=== PATIENT | male | born 1970 | race Caucasian/White ===

== ENCOUNTER 2021-01-15 06:28 | Day surgery (SDC) | payer BC ==
[2021-01-15] MEDS ORDERED: Lactated Ringers 1,000 ML IV SCH (07:30)
[2021-01-15] MEDS ORDERED: DIPRIVAN 200 MG/20 ML IV ONE (07:54)
--- NOTE | 2021-01-15 08:58 | OP ---
SURGERY DATE/TIME: 01/15/2021 0802 PREOPERATIVE DIAGNOSES: 1) Screening colonoscopy. 2) History of colon polyps. 3) Family history of colon cancer. POSTOPERATIVE DIAGNOSIS: Normal colon. PROCEDURE: Colonoscopy. SURGEON: Colby Malhotra M.D. ANESTHESIA: MAC by Zohaib Tracy CRNA. ESTIMATED BLOOD LOSS: None. SPECIMENS: None. DESCRIPTION OF PROCEDURE: After informed written consent was obtained, the patient was taken to the endoscopy suite. He underwent monitored anesthesia after he was placed in left lateral decubitus position. Digital rectal exam showed mild external hemorrhoids, no internal lesions and normal sphincter tone. The scope was inserted in the rectum and sequentially the entire colonic mucosa was traversed. The level of cecum was reached and verified with direct visualization of ileocecal valve. Upon withdrawal careful mucosal inspection revealed no gross abnormalities. Prior to withdrawal retroflexion was performed and showed no internal lesions. The scope was removed and the patient was transferred to the recovery room in good condition.
[2021-01-15 09:24] VITALS: BP 153/98; PULSE 77; O2SAT 99
== END 2021-01-15 09:12 | disposition home or self-care (01) ==
LOC: SDC 06:28
PROVIDERS: ATTEND Family Medicine
DX: Z12.11 Encounter for screening for malignant neoplasm of colon (principal); Z86.010 Personal history of colon polyps; Z80.0 Family history of malignant neoplasm of digestive organs
CPT/HCPCS: J2704

== ENCOUNTER 2024-12-31 08:33 | Observation (INO) | payer BC ==
--- NOTE | 2024-12-31 09:00 | ERPHSYRPT ---
- History of Present Illness Time Seen by Provider: 12/31/24 08:56 Historian: patient Exam Limitations: no limitations Patient Subjective Stated Complaint: pt here for chest pain off and on for a week now. pain started again 0600 this am. states pain to left side of chest. light headed at times.pt states he is under a lot of stress Triage Nursing Assessment: pt alert, walked in, resp easy, skin w/d/p, chest clear. abd soft, moves all ext well. no cough Physician History: 54-year-old male history of diabetes, hypertension, cardiomegaly, hypercholesterolemia presents to our ED for evaluation of intermittent chest pain radiating to his neck. Symptoms are associated with bouts of near syncope/lightheadedness. The symptoms have been occurring intermittently throughout the week. Patient reports she has been under significant amount of stress due to his work. No associated nausea vomiting or diaphoresis. Symptoms are mild to moderate in intensity. No specific worsening or improving factors. Patient otherwise feels well. He voices no other complaints or concerns at this time. Portions of this note were created with voice recognition technology. There may be grammatical, spelling, punctuation or sound alike errors Timing/Duration: week(s) (1 week) Activities at Onset: none Quality: aching Location: substernal Chest Pain Radiation: neck Severity of Pain-Max: moderate Severity of Pain-Current: mild Modifying Factors: Improves With: nothing Associated Symptoms: denies symptoms Prior Chest Pain/Cardiac Workup: no prior chest pain Nitro Today/Relief: no nitro taken today Aspirin Treatment Today: no aspirin today Allergies/Adverse Reactions: acetaminophen [From Vicodin] Adverse Reaction (Verified 12/31/24 08:38) codeine Adverse Reaction (Verified 12/31/24 08:38) Vomiting hydrocodone bitartrate [From Vicodin] Adverse Reaction (Verified 12/31/24 08:38) Home Medications: Amlodipine Besylate [Norvasc] 5 mg PO DAILY 01/06/21 [History] Ascorbic Acid/Elderberry Fruit [Elderberry-Vit C 50-100 mg Chw] 1 each PO DAILY 01/06/21 [History] Aspirin EC 81 mg [Ecotrin 81 mg] 81 mg PO DAILY 01/06/21 [History] Atorvastatin Calcium [Lipitor] 20 mg PO QHS 01/06/21 [History] Gabapentin [Neurontin] 300 mg PO DAILY PRN PRN 01/06/21 [History] Hydrochlorothiazide 25 mg [hydroDIURIL 25 MG] 25 mg PO DAILY 01/06/21 [History] Olmesartan Medoxomil 20 mg [Benicar 20 MG] 20 mg PO DAILY 01/06/21 [History] Turmeric/Turmeric Root Extract [Turmeric 500 mg Capsule] 1 each PO DAILY 01/06/21 [History] flaxseed oiL [Flaxseed Oil] 1 tab PO DAILY 01/06/21 [History] Hx Influenza Vaccination/Date Given: No Hx Pneumococcal Vaccination/Date Given: No Immunizations Up to Date: Yes Travel Risk - International Travel Have you traveled outside of the country in past 3 weeks: No - Emerging Infectious Disease Are you exhibiting symptoms associated with any current EIDs: No - Review of Systems Constitutional: No Symptoms, No Fever, No Chills Eyes: No Symptoms Ears, Nose, & Throat: No Symptoms Respiratory: No Symptoms, No Cough, No Dyspnea Cardiac: No Symptoms, No Chest Pain, No Edema, No Syncope Abdominal/Gastrointestinal: No Symptoms, No Abdominal Pain, No Nausea, No Vomiting, No Diarrhea Genitourinary Symptoms: No Symptoms, No Dysuria Musculoskeletal: No Symptoms, No Back Pain, No Neck Pain Skin: No Symptoms, No Rash Neurological: No Symptoms, No Dizziness, No Focal Weakness, No Sensory Changes Psychological: No Symptoms Endocrine: No Symptoms Hematologic/Lymphatic: No Symptoms Immunological/Allergic: No Symptoms All Other Systems: Reviewed and Negative - Past Medical History Neurological History: Migraines, Other ENT History: No Pertinent History Cardiac History: High Cholesterol, Hypertension Respiratory History: Asthma Endocrine Medical History: Diabetes Type II Musculoskeletal History: Osteoarthritis GI Medical History: GERD, Hemorrhoids, Hernia, Irritable Bowel, Polyps, Ulcer History: No Pertinent History Psycho-Social History: No Pertinent History Male Reproductive Disorders: No Pertinent History Other Medical History: 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 C5-6, COMPRESSION OF THE NERVE. ARMS GO NUMB AT TIMES. SEVERAL BULDGING AND HERNIATED DISCS IN THE T-SPINE. BONE SPURS IN L-SPINE. 2017 SURGERY AT L4-5. PERMANENT NERVE DAMAGE IN LE. DR. BABCOCK HAS BEEN HIS SURGEON. - Past Surgical History Past Surgical History: Yes Neuro Surgical History: No Pertinent History Cardiac: No Pertinent History Respiratory: No Pertinent History Gastrointestinal: No Pertinent History Genitourinary: No Pertinent History Musculoskeletal: No Pertinent History, Orthopedic Surgery Male Surgical History: No Pertinent History Other Surgical History: sinus surgery, adnoids out. colonoscopies , uvalectomy - Social History Smoking Status: Former smoker Exposure to second hand smoke: No Drug Use: none - Social Determinants of Health Will the patient participate in the screening: Declined to provide - Nursing Vital Signs Nursing Vital Signs: Initial Vital Signs Temperature 97.1 F 12/31/24 08:37 Pulse Rate 68 12/31/24 08:37 Blood Pressure 152/86 12/31/24 08:37 O2 Sat by Pulse Oximetry 99 12/31/24 08:37 Pain Scale Pain Intensity 7 - Physical Exam General Appearance: no apparent distress, alert Eye Exam: PERRL/EOMI, eyes nml inspection Ears, Nose, Throat Exam: normal ENT inspection, moist mucous membranes Neck Exam: normal inspection, full range of motion Respiratory Exam: normal breath sounds, lungs clear, No respiratory distress Cardiovascular Exam: regular rate/rhythm, normal heart sounds Gastrointestinal/Abdomen Exam: soft, No tenderness, No mass Back Exam: normal inspection, No CVA tenderness, No vertebral tenderness Extremity Exam: normal inspection, normal range of motion Neurologic Exam: alert, oriented x 3, cooperative, normal mood/affect, sensation nml, No motor deficits Skin Exam: normal color, warm, dry Lymphatic Exam: No adenopathy SpO2 Interpretation: normal SpO2: 99 O2 Delivery: Room Air - Course Nursing assessment & vital signs reviewed: Yes EKG Interpreted by Me: RATE (68), Sinus Rhythm, NORMAL AXIS, NORMAL INTERVALS, NORMAL QRS - Radiology Exams Chest X-ray Interpretation: Teleradiologist Report (No acute findings) Ordered Tests: Active Orders 24 hr Category Date Time Status Manager Medical Device STAT Care 12/31/24 08:46 Active EKG-ER Only STAT Care 12/31/24 08:45 Active IV Insertion STAT Care 12/31/24 08:45 Active Pulse Oximetry (ED) STAT Care 12/31/24 08:45 Active CHEST 1 VIEW (PORTABLE) Stat Exams 12/31/24 10:17 Completed CBC W DIFF Stat Lab 12/31/24 09:05 Completed CMP Stat Lab 12/31/24 09:05 Completed D-DIMER QUANTITATIVE Stat Lab 12/31/24 09:05 Completed NT PRO BNPII Stat Lab 12/31/24 09:05 Completed TROPONIN Q4H Lab 12/31/24 09:05 Completed TROPONIN Q4H Lab 12/31/24 11:30 Completed TROPONIN Q4H Lab 12/31/24 16:45 Ordered Transfer Order Routine Transfer 12/31/24 Ordered Lab/Rad Data: Laboratory Result Diagrams 12/31/24 09:05 12/31/24 09:05 Laboratory Results 12/31/24 12/31/24 12/31/24 Range/Units 11:30 09:05 09:05 WBC (4.23-9.07) x10^3/uL RBC (4.63-6.08) x10^6/uL Hgb (13.7-17.5) g/dL Hct (40.1-51.0) % MCV (79.0-92.2) fL MCH (25.7-32.2) pg MCHC (32.3-36.5) g/dL RDW (11.6-14.4) % Plt Count (163-337) x10^3/uL MPV (9.4-12.4) fL Gran % (34.0-67.9) % Immature Gran % (Auto) (0.001-0.429) % Nucleat RBC Rel Count (0.00-0.2) % Eos # (Auto) (0.04-0.54) x10^3/uL Immature Gran # (Auto) (0.001-0.031) x10^3u/L Absolute Lymphs (auto) (1.32-3.57) x10^3/uL Absolute Monos (auto) (0.30-0.82) x10^3/uL Absolute Nucleated RBC (0.00-0.012) x10^3u/L Lymphocytes % (21.8-53.1) % Monocytes % (5.3-12.2) % Eosinophils % (0.8-7.0) % Basophils % (0.2-1.2) % Absolute Granulocytes (1.78-5.38) x10^3/uL Basophils # (0.01-0.08) x10^3/uL D-Dimer < 0.19 (0.0-0.50) mg/L Sodium 140 (135-145) mmol/L Potassium 3.7 (3.5-5.1) mmol/L Chloride 102 (98-107) mmol/L Carbon Dioxide 27 (22-30) mmol/L Anion Gap 14.7 (5-15) MEQ/L BUN 21 H (9-20) mg/dL Creatinine 0.93 (0.66-1.25) mg/dL Estimated GFR 96.4 ML/MIN Glucose 106 (74-106) mg/dL Calcium 9.4 (8.4-10.2) mg/dL Total Bilirubin 0.60 (0.2-1.3) mg/dL AST 40 (17-59) U/L ALT 49 (0-50) U/L Alkaline Phosphatase 54 (38-126) U/L Troponin I < 0.012 < 0.012 (0.000-0.033) ng/mL NT-Pro-B Natriuret Pep < 20.0 (<300) pg/mL Serum Total Protein 7.4 (6.3-8.2) g/dL Albumin 4.5 (3.5-5.0) g/dL 12/31/24 Range/Units 09:05 WBC 6.6 (4.23-9.07) x10^3/uL RBC 4.99 (4.63-6.08) x10^6/uL Hgb 14.7 (13.7-17.5) g/dL Hct 43.7 (40.1-51.0) % MCV 87.6 (79.0-92.2) fL MCH 29.5 (25.7-32.2) pg MCHC 33.6 (32.3-36.5) g/dL RDW 13.2 (11.6-14.4) % Plt Count 224 (163-337) x10^3/uL MPV 9.6 (9.4-12.4) fL Gran % 64.0 (34.0-67.9) % Immature Gran % (Auto) 0.5 H (0.001-0.429) % Nucleat RBC Rel Count 0.0 (0.00-0.2) % Eos # (Auto) 0.15 (0.04-0.54) x10^3/uL Immature Gran # (Auto) 0.03 (0.001-0.031) x10^3u/L Absolute Lymphs (auto) 1.51 (1.32-3.57) x10^3/uL Absolute Monos (auto) 0.66 (0.30-0.82) x10^3/uL Absolute Nucleated RBC 0.00 (0.00-0.012) x10^3u/L Lymphocytes % 22.7 (21.8-53.1) % Monocytes % 9.9 (5.3-12.2) % Eosinophils % 2.3 (0.8-7.0) % Basophils % 0.6 (0.2-1.2) % Absolute Granulocytes 4.25 (1.78-5.38) x10^3/uL Basophils # 0.04 (0.01-0.08) x10^3/uL D-Dimer (0.0-0.50) mg/L Sodium (135-145) mmol/L Potassium (3.5-5.1) mmol/L Chloride (98-107) mmol/L Carbon Dioxide (22-30) mmol/L Anion Gap (5-15) MEQ/L BUN (9-20) mg/dL Creatinine (0.66-1.25) mg/dL Estimated GFR ML/MIN Glucose (74-106) mg/dL Calcium (8.4-10.2) mg/dL Total Bilirubin (0.2-1.3) mg/dL AST (17-59) U/L ALT (0-50) U/L Alkaline Phosphatase (38-126) U/L Troponin I (0.000-0.033) ng/mL NT-Pro-B Natriuret Pep (<300) pg/mL Serum Total Protein (6.3-8.2) g/dL Albumin (3.5-5.0) g/dL - Progress Progress: improved Air Movement: good Progress Note: Case discussed with Dr. Zhu Who accepts admission to observation at 11:12 AM. 12/31/24 11:12 Patient is a 54-year-old male presents to our ED for evaluation of chest pain with radiation into his neck. Patient has a significant cardiovascular history. Patient heart score is a 4. Physical exam otherwise nonremarkable. Workup reveals EKG sinus rhythm. Troponin negative x 2. Patient otherwise feels well. Heart score is 4. Patient will be admitted for further evaluation and treatment. at bedside. They voiced no other complaints or concerns at this time. Portions of this note were created with voice recognition technology. There may be grammatical, spelling, punctuation or sound alike errors Complexity of problem addressed is moderate acute complicated. No critical care time. Complex of data reviewed and analyzed is extensive. Test ordered test reviewed results analyzed and correlated clinically with history and physical exam. Management discussed with Dr. zhu who accepts admission to observation at 11:12 AM. Risk of complication and or risk of morbidity/mortality of patient management is high. Patient requires hospitalization for further evaluation and treatment. Vital stable. Time spent to admit patient is approximately 20 minutes. Plan of care established for shared decision making. No social determinants of health present to impede follow-up. Portions of this note were created with voice recognition technology. There may be grammatical, spelling, punctuation or sound alike errors 12/31/24 12:04 Blood Culture(s) Obtained: No Antibiotics given: No Counseled pt/family regarding: lab results, diagnosis, rad results - Departure Departure Disposition: Observation Clinical Impression: Chest pain, ACS (acute coronary syndrome), Near syncope Condition: Stable Critical Care Time: No Referrals: DINORAH LOPEZ MD [Primary Care Provider] - Follow up/PCP as directed
[2024-12-31 09:16] LABS: Absolute Neutrophil Ct (ANC) 4.25 x10^3/uL (1.78-5.38); BASOPHIL % 0.6 % (0.2-1.2); Basophil (Absolute #) 0.04 x10^3/uL (0.01-0.08); Eosinophil % 2.3 % (0.8-7.0); Eosinophil (Absolute #) 0.15 x10^3/uL (0.04-0.54); Hematocrit 43.7 % (40.1-51.0); Hemoglobin 14.7 g/dL (13.7-17.5); IMMATURE GRAN # 0.03 x10^3u/L (0.001-0.031); IMMATURE GRAN % 0.5 % (0.001-0.429); Lymphocyte (Absolute #) 1.51 x10^3/uL (1.32-3.57); Lymphocytes % 22.7 % (21.8-53.1); Mean Cell Volume 87.6 fL (79.0-92.2); Mean Corpuscular Hemoglobin 29.5 pg (25.7-32.2); Mean Corpuscular Hgb Concent. 33.6 g/dL (32.3-36.5); Mean Platelet Volume 9.6 fL (9.4-12.4); Monocyte (Absolute #) 0.66 x10^3/uL (0.30-0.82); Monocytes % 9.9 % (5.3-12.2); Platelet Count 224 x10^3/uL (163-337); Red Blood Count 4.99 x10^6/uL (4.63-6.08); Red Cell Distribution Width 13.2 % (11.6-14.4); White Blood Count 6.6 x10^3/uL (4.23-9.07)
[2024-12-31 09:38] LABS: ALBUMIN 4.5 g/dL (3.5-5.0); ALKALINE PHOSPHATASE 54 U/L (38-126); ANION GAP 14.7 MEQ/L (5-15); BLOOD UREA NITROGEN 21 mg/dL (9-20); CHLORIDE 102 mmol/L (98-107); Calcium 9.4 mg/dL (8.4-10.2); Carbon Dioxide 27 mmol/L (22-30); Creatinine 1 0.93 mg/dL (0.66-1.25); EST GLOMERULAR FILTRATION RATE 96.4 ML/MIN; Glucose 106 mg/dL (74-106); NT PRO BNPII < 20.0 pg/mL (<300); Potassium 3.7 mmol/L (3.5-5.1); SGOT/AST 40 U/L (17-59); SGPT/ALT 49 U/L (0-50); SODIUM 140 mmol/L (135-145); TROPONIN < 0.012 ng/mL (0.000-0.033); Total Protein 7.4 g/dL (6.3-8.2)
--- NOTE | 2024-12-31 10:47 | XRAY ---
Indication: Pain. Comparison: December 04, 2024 Portable chest demonstrates improving right lower lobe interstitial alveolar opacities with minimal residual. Remaining lungs clear. Heart not enlarged again with tortuous descending aorta. No new cardiopulmonary abnormalities.
--- NOTE | 2024-12-31 12:46 | PCM.HP ---
History of Present Illness - Chief Complaint Chief Complaint: Chest pain, ACS Date: 12/31/24 History of Present Illness: is a 54 year old male with a history of diabetes, hypertension, cardiomegaly, asthma, pre-diabetic (on Mounjaro), and hypercholesterolemia who presented to the emergency department 12/31/24 with a six day history of intermittent substernal chest pain radiating to his neck, accompanied by episodes of near syncope and lightheadedness. He denies associated nausea, vomiting, or diaphoresis, and characterizes the pain as mild to moderate in intensity sharp/aching, with exacerbating factors being stress and relieving factors being rest and not eating. He additionally reports belching and bloating. He does occasionally have shortness of breath but states he can walk two miles without issues. He was diagnosed with pneumonia approximately one month ago but feels he has recovered well from that. Vitals stable upon arrival. Initial assessment reveals an EKG with a heart rate of 68 beats per minute, sinus rhythm, normal axis, and normal intervals and QRS complexes, suggesting no acute ischemic changes. Laboratory results, including troponin I x1, BNP, and D-dimer, are all within normal limits. A chest X-ray demonstrates improving right lower lobe interstitial and alveolar opacities with minimal residual changes, but no new cardiopulmonary abnormalities are noted. The heart is not enlarged, although a tortuous descending aorta is again observed. Patient admitted for ACS rule out . - Review of Systems Constitutional: No Symptoms Eyes: No Symptoms Ears, Nose, & Throat: No Symptoms Respiratory: Short Of Breath Cardiac: Chest Pain, Palpitations, Other (near syncopal episode) Abdominal/Gastrointestinal: Abdominal Pain (LUQ) Genitourinary Symptoms: No Symptoms Musculoskeletal: No Symptoms Skin: No Symptoms Neurological: Dizziness Psychological: No Symptoms Endocrine: No Symptoms Hematologic/Lymphatic: No Symptoms Immunological/Allergic: No Symptoms Medications & Allergies Home Medications: Home Medication List Amlodipine Besylate [Norvasc] 5 mg PO DAILY 01/06/21 [History Confirmed 01/15/21] Ascorbic Acid/Elderberry Fruit [Elderberry-Vit C 50-100 mg Chw] 1 each PO DAILY 01/06/21 [History Confirmed 01/15/21] Aspirin EC 81 mg [Ecotrin 81 mg] 81 mg PO DAILY 01/06/21 [History Confirmed 01/15/21] Atorvastatin Calcium [Lipitor] 20 mg PO QHS 01/06/21 [History Confirmed 01/15/21] Gabapentin [Neurontin] 300 mg PO DAILY PRN PRN 01/06/21 [History Confirmed 01/15/21] Hydrochlorothiazide 25 mg [hydroDIURIL 25 MG] 25 mg PO DAILY 01/06/21 [History Confirmed 01/15/21] Olmesartan Medoxomil 20 mg [Benicar 20 MG] 20 mg PO DAILY 01/06/21 [History Confirmed 01/15/21] flaxseed oiL [Flaxseed Oil] 1 tab PO DAILY 01/06/21 [History Confirmed 01/15/21] Allergies/Adverse Reactions: Allergies Allergy/AdvReac Type Severity Reaction Status Date / Time acetaminophen [From Vicodin] AdvReac Verified 12/31/24 08:38 codeine AdvReac Vomiting Verified 12/31/24 08:38 hydrocodone bitartrate AdvReac Verified 12/31/24 08:38 [From Vicodin] - Past Medical History Neurological History: Migraines, Other ENT History: No Pertinent History Cardiac History: High Cholesterol, Hypertension Respiratory History: Asthma Endocrine Medical History: Diabetes Type II Musculoskelatal History: Osteoarthritis GI Medical History: GERD, Hemorrhoids, Hernia, Irritable Bowel, Polyps, Ulcer History: No Pertinent History Pyscho-Social History: No Pertinent History Male Reproductive Disorders: No Pertinent History Comment: 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 C5-6, COMPRESSION OF THE NERVE. ARMS GO NUMB AT TIMES. SEVERAL BULDGING AND HERNIATED DISCS IN THE T- SPINE. BONE SPURS IN L-SPINE. 2017 SURGERY AT L4-5. PERMANENT NERVE DAMAGE IN LE. DR. BABCOCK HAS BEEN HIS SURGEON. - Past Surgical History Past Surgical History: Yes Neuro Surgical History: No Pertinent History Cardiac History: No Pertinent History Respiratory Surgery: No Pertinent History GI Surgical History: No Pertinent History Genitourinary Surgical Hx: No Pertinent History Musculskeletal Surgical Hx: No Pertinent History, Orthopedic Surgery Male Surgical History: No Pertinent History Other Surgical History: sinus surgery, adnoids out. colonoscopies , uvalectomy Significant Family History: heart disease, cancer, stroke - Social History Smoking Status: Former smoker Exposure to second hand smoke: No Alcohol: Occasionally Drug Use: none - Social Determinants of Health Will the patient participate in the screening: Declined to provide - Physical Exam Vital Signs: Vital Signs - 24 hr Temp Pulse Pulse Resp BP BP Pulse Ox 12/31/24 12:20 99 12/31/24 12:00 72 18 154/90 99 12/31/24 11:45 79 18 143/78 99 12/31/24 11:31 81 11 L 140/77 97 12/31/24 11:19 67 12 147/80 97 12/31/24 11:00 66 10 L 131/72 97 12/31/24 10:45 61 12 154/81 97 12/31/24 10:30 63 8 L 146/76 99 12/31/24 10:16 66 9 L 151/91 98 12/31/24 10:00 76 19 154/93 99 12/31/24 09:45 62 12 157/80 98 12/31/24 09:30 66 9 L 153/89 98 12/31/24 09:15 64 10 L 142/86 99 12/31/24 09:10 78 96 12/31/24 09:08 69 15 141/88 97 12/31/24 08:37 97.1 F 68 152/86 99 General Appearance: no apparent distress Neurologic Exam: alert, oriented x 3, cooperative Eye Exam: PERRL/EOMI Ears, Nose, Throat Exam: normal ENT inspection Neck Exam: normal inspection Respiratory Exam: normal breath sounds, lungs clear Cardiovascular Exam: regular rate/rhythm, normal heart sounds Gastrointestinal/Abdomen Exam: soft, normal bowel sounds, tenderness (LUQ TTP) Rectal Exam: deferred Back Exam: normal inspection Extremity Exam: normal inspection Skin Exam: normal color Results - Labs Lab/Micro Results: Lab Results-Last 24 Hours 12/31/24 12/31/24 12/31/24 Range/Units 09:05 09:05 09:05 WBC 6.6 (4.23-9.07) x10^3/uL RBC 4.99 (4.63-6.08) x10^6/uL Hgb 14.7 (13.7-17.5) g/dL Hct 43.7 (40.1-51.0) % MCV 87.6 (79.0-92.2) fL MCH 29.5 (25.7-32.2) pg MCHC 33.6 (32.3-36.5) g/dL RDW 13.2 (11.6-14.4) % Plt Count 224 (163-337) x10^3/uL MPV 9.6 (9.4-12.4) fL Gran % 64.0 (34.0-67.9) % Immature Gran % (Auto) 0.5 H (0.001-0.429) % Nucleat RBC Rel Count 0.0 (0.00-0.2) % Eos # (Auto) 0.15 (0.04-0.54) x10^3/uL Immature Gran # (Auto) 0.03 (0.001-0.031) x10^3u/L Absolute Lymphs (auto) 1.51 (1.32-3.57) x10^3/uL Absolute Monos (auto) 0.66 (0.30-0.82) x10^3/uL Absolute Nucleated RBC 0.00 (0.00-0.012) x10^3u/L Lymphocytes % 22.7 (21.8-53.1) % Monocytes % 9.9 (5.3-12.2) % Eosinophils % 2.3 (0.8-7.0) % Basophils % 0.6 (0.2-1.2) % Absolute Granulocytes 4.25 (1.78-5.38) x10^3/uL Basophils # 0.04 (0.01-0.08) x10^3/uL D-Dimer < 0.19 (0.0-0.50) mg/L Sodium 140 (135-145) mmol/L Potassium 3.7 (3.5-5.1) mmol/L Chloride 102 (98-107) mmol/L Carbon Dioxide 27 (22-30) mmol/L Anion Gap 14.7 (5-15) MEQ/L BUN 21 H (9-20) mg/dL Creatinine 0.93 (0.66-1.25) mg/dL Estimated GFR 96.4 ML/MIN Glucose 106 (74-106) mg/dL Calcium 9.4 (8.4-10.2) mg/dL Total Bilirubin 0.60 (0.2-1.3) mg/dL AST 40 (17-59) U/L ALT 49 (0-50) U/L Alkaline Phosphatase 54 (38-126) U/L Troponin I < 0.012 (0.000-0.033) ng/mL NT-Pro-B Natriuret Pep < 20.0 (<300) pg/mL Serum Total Protein 7.4 (6.3-8.2) g/dL Albumin 4.5 (3.5-5.0) g/dL 12/31/24 Range/Units 11:30 WBC (4.23-9.07) x10^3/uL RBC (4.63-6.08) x10^6/uL Hgb (13.7-17.5) g/dL Hct (40.1-51.0) % MCV (79.0-92.2) fL MCH (25.7-32.2) pg MCHC (32.3-36.5) g/dL RDW (11.6-14.4) % Plt Count (163-337) x10^3/uL MPV (9.4-12.4) fL Gran % (34.0-67.9) % Immature Gran % (Auto) (0.001-0.429) % Nucleat RBC Rel Count (0.00-0.2) % Eos # (Auto) (0.04-0.54) x10^3/uL Immature Gran # (Auto) (0.001-0.031) x10^3u/L Absolute Lymphs (auto) (1.32-3.57) x10^3/uL Absolute Monos (auto) (0.30-0.82) x10^3/uL Absolute Nucleated RBC (0.00-0.012) x10^3u/L Lymphocytes % (21.8-53.1) % Monocytes % (5.3-12.2) % Eosinophils % (0.8-7.0) % Basophils % (0.2-1.2) % Absolute Granulocytes (1.78-5.38) x10^3/uL Basophils # (0.01-0.08) x10^3/uL D-Dimer (0.0-0.50) mg/L Sodium (135-145) mmol/L Potassium (3.5-5.1) mmol/L Chloride (98-107) mmol/L Carbon Dioxide (22-30) mmol/L Anion Gap (5-15) MEQ/L BUN (9-20) mg/dL Creatinine (0.66-1.25) mg/dL Estimated GFR ML/MIN Glucose (74-106) mg/dL Calcium (8.4-10.2) mg/dL Total Bilirubin (0.2-1.3) mg/dL AST (17-59) U/L ALT (0-50) U/L Alkaline Phosphatase (38-126) U/L Troponin I < 0.012 (0.000-0.033) ng/mL NT-Pro-B Natriuret Pep (<300) pg/mL Serum Total Protein (6.3-8.2) g/dL Albumin (3.5-5.0) g/dL - Radiology Impressions Radiology Exams & Impressions: Radiology Procedures Category Date Time Status CHEST 1 VIEW (PORTABLE) Stat Exams 12/31/24 10:17 Completed Assessment/Plan (1) Chest pain Current Visit: Yes Status: Acute Assessment & Plan: -EKG with a heart rate of 68 beats per minute, sinus rhythm, normal axis, and normal intervals and QRS complexes, suggesting no acute ischemic changes. -troponin I x1, BNP, and D-dimer, are all within normal limits -continue troponin series -CXR demonstrates improving right lower lobe interstitial and alveolar opacities with minimal residual changes, but no new cardiopulmonary abnormalities are noted. The heart is not enlarged, although a tortuous descending aorta is again observed. -Repeat EKG in the a.m. -May need OP cardiac stress testing -ASA -324mg -Nitro -Tele Code(s): R07.9 - CHEST PAIN, UNSPECIFIED (2) HTN (hypertension) Current Visit: Yes Status: Acute Assessment & Plan: -Stable - continue home meds Code(s): I10 - ESSENTIAL (PRIMARY) HYPERTENSION (3) HLD (hyperlipidemia) Current Visit: Yes Status: Acute Assessment & Plan: -Continue home statin Code(s): E78.5 - HYPERLIPIDEMIA, UNSPECIFIED (4) GERD (gastroesophageal reflux disease) Current Visit: Yes Status: Acute Assessment & Plan: -Protonix IV Code(s): K21.9 - GASTRO-ESOPHAGEAL REFLUX DISEASE WITHOUT ESOPHAGITIS (5) Pre-diabetes Current Visit: Yes Status: Acute Assessment & Plan: -Hold mounjaro for now -ADA diet -A1c Code(s): R73.03 - PREDIABETES (6) Near syncope Current Visit: Yes Status: Acute Assessment & Plan: -Orthostatic vitals -Echo -tele -Carotid US -Med review VTE: Lovenox PPI: protonix Dispo: 1-2 days Code: Full
[2024-12-31] MEDS ORDERED: DUONEB 0.5-3 MG/3 ml Neb IH PRN (13:01)
[2024-12-31] MEDS ORDERED: Zofran 4 MG/2 ML VIAL IV PRN (13:01)
[2024-12-31] MEDS ORDERED: MORPHINE SULFATE 2 MG INJ IV PRN (13:06)
[2024-12-31] MEDS ORDERED: Nitrostat 0.4 MG Tablet SL PRN (13:06)
--- NOTE | 2024-12-31 14:33 | XRAY ---
Indication: Pain. Multiple contiguous axial images obtained through the abdomen and pelvis without contrast. Comparison: None Lung bases clear. Heart not enlarged. Small hiatal hernia. Noncontrasted stomach and bowel loops appear nonobstructed. Normal appendix. Minimal scattered colonic diverticulosis without diverticulitis. Nonobstructing right renal punctate calculus. No free fluid/air. Remaining liver, gallbladder, pancreas, spleen, adrenal glands, kidneys, ureters, and bladder are unremarkable for noncontrast exam. Minimal aortoiliac calcifications without AAA. Osseous structures intact with mild/moderate degenerative changes throughout thoracolumbar spine and minimal dextroscoliosis centered at thoracolumbar junction. Small fatty umbilical and small bilateral fatty inguinal hernias. Impression: Chronic findings including hiatal hernia, colonic diverticulosis, nonobstructing right renal punctate calculus, arteriosclerotic disease, chronic bony findings, and fatty umbilical/bilateral inguinal hernias. No acute findings on this noncontrast exam.
[2024-12-31] MEDS: ENOXAPARIN SODIUM SQ SCH (14:47)
[2024-12-31] MEDS: Ecotrin 325 MG PO ONE (14:47)
--- NOTE | 2024-12-31 15:21 | XRAY ---
Indication: Near syncope. Stroke. Multiple contiguous axial images obtained through the head without contrast. Comparison: None Normal appearing brain parenchyma, ventricles, and bony calvarium for patient's age. Visualized paranasal sinuses and mastoid air cells are clear. Impression: Normal CT head without contrast exam.
--- NOTE | 2024-12-31 16:41 | XRAY ---
Indication: Near syncopal episode. Two-dimensional sonogram and color Doppler imaging carotid arteries in the neck performed. Comparison: None Examination right carotid circulation demonstrates widely patent common carotid, carotid bulb, internal carotid, and external carotid arteries. PSV CCA is 110 cm/s. PSV ICA is 75 cm/s. ICA/CCA ratio is 0.7. Normal antegrade vertebral artery flow. Examination left carotid circulation demonstrates widely patent common carotid, carotid bulb, internal carotid, and external carotid arteries. PSV CCA is 115 cm/s. PSV ICA is 73 cm/s. ICA/CCA ratio is 0.6. Normal antegrade vertebral artery flow. Impression: Widely patent left and right carotid arteries of the neck. Velocity measures and ratios also negative for hemodynamically significant flow-limiting stenosis.
[2024-12-31 18:55] LABS: Appearance Clear (Clear); Bacteria None Seen /HPF (None Seen); Bilirubin Negative (Negative); Blood Negative (Negative); Epithelial Cells None Seen /HPF (None Seen); Glucose, Urine Negative (Negative); Hyaline Casts NONE SEEN /LPF (0-2); Ketones Negative (Negative); Leukocyte Esterase Negative (Negative); Nitrite Negative (Negative); Ph 7.5 (4.6-8.0); Protein,Urine Dip Negative (Negative); RBC 0-2 /HPF (0-5); Urobilinogen 0.2 mg/dL (0.2); WBC 0-2 /HPF (0-5)
[2024-12-31] MEDS: ZOCOR 20MG PO SCH (20:44)
[2024-12-31] MEDS: NEURONTIN PO PRN (20:46)
[2025-01-01 05:12] LABS: Absolute Neutrophil Ct (ANC) 4.49 x10^3/uL (1.78-5.38); BASOPHIL % 0.8 % (0.2-1.2); Basophil (Absolute #) 0.06 x10^3/uL (0.01-0.08); Eosinophil % 2.4 % (0.8-7.0); Eosinophil (Absolute #) 0.19 x10^3/uL (0.04-0.54); Hematocrit 44.1 % (40.1-51.0); Hemoglobin 14.5 g/dL (13.7-17.5); IMMATURE GRAN # 0.04 x10^3u/L (0.001-0.031); IMMATURE GRAN % 0.5 % (0.001-0.429); Lymphocyte (Absolute #) 2.35 x10^3/uL (1.32-3.57); Lymphocytes % 29.5 % (21.8-53.1); Mean Cell Volume 87.7 fL (79.0-92.2); Mean Corpuscular Hemoglobin 28.8 pg (25.7-32.2); Mean Corpuscular Hgb Concent. 32.9 g/dL (32.3-36.5); Mean Platelet Volume 10.5 fL (9.4-12.4); Monocyte (Absolute #) 0.83 x10^3/uL (0.30-0.82); Monocytes % 10.4 % (5.3-12.2); Neutrophil % 56.4 % (34.0-67.9); Platelet Count 225 x10^3/uL (163-337); Red Blood Count 5.03 x10^6/uL (4.63-6.08); Red Cell Distribution Width 13.3 % (11.6-14.4)
[2025-01-01 05:40] LABS: ALBUMIN 4.3 g/dL (3.5-5.0); ANION GAP 13.4 MEQ/L (5-15); BILIRUBIN,TOTAL 0.8 mg/dL (0.2-1.3); Calcium 9.2 mg/dL (8.4-10.2); Creatinine 1 0.83 mg/dL (0.66-1.25); EST GLOMERULAR FILTRATION RATE 102.7 ML/MIN; Potassium 3.5 mmol/L (3.5-5.1); Total Protein 7.1 g/dL (6.3-8.2)
--- NOTE | 2025-01-01 05:56 | PCM.DS ---
Discharge Summary Date of Admission: 12/31/24 12:16 Date of Discharge: 01/01/25 Admitting Physician: AIDA JOHNSTON MD Primary Care Provider: DINORAH LOPEZ VONDA Allergies Allergies acetaminophen [From Vicodin] Adverse Reaction (Verified 12/31/24 08:38) codeine Adverse Reaction (Verified 12/31/24 08:38) Vomiting hydrocodone bitartrate [From Vicodin] Adverse Reaction (Verified 12/31/24 08:38) Hospital Summary - Hospital Course Hospital Course: Mr. Smith, a 54-year-old male with a history of diabetes, hypertension, hyperlipidemia, cardiomegaly, asthma, and prediabetes (on Mounjaro), was admitted for evaluation of intermittent substernal chest pain radiating to his neck, associated with near syncope and lightheadedness. He described the pain as burning in nature, sometimes accompanied by belching and bloating, with exacerbation by stress and relief with rest and not eating. Given his multiple cardiovascular risk factors, an acute coronary syndrome workup was initiated. On admission, his vital signs were stable. Initial electrocardiogram (EKG) showed normal sinus rhythm with no ischemic changes, and serial troponins remained negative. A chest X-ray demonstrated improving right lower lobe opacities, likely residual from his recent pneumonia, without new cardiopulmonary abnormalities. BNP and D-dimer were also within normal limits. A CT of the head was unremarkable, and carotid ultrasound showed widely patent arteries without significant stenosis. Echocardiography was performed as part of the near-syncope evaluation and unremarkable. Telemetry monitoring showed no arrhythmic events. His symptoms most likely were attributed to gastroesophageal reflux disease, exacerbated by a known hiatal hernia seen on abdominal imaging. He was initiated on IV Protonix with symptomatic improvement. Given his stable condition and negative cardiac workup, he was deemed low risk for ACS and was discharged with plans for outpatient stress testing to further assess for occult coronary artery disease if symptoms persist. At discharge, he was hemodynamically stable and tolerating oral intake. He was advised to continue home medications, including his antihypertensives and statin, while holding Mounjaro temporarily. He was counseled on dietary modifications for GERD management and advised to follow up with cardiology for further evaluation as needed. Discharge Note New Diagnosis: Chest pain/near syncope New Medications: Protonix Follow Up: PCP/Cardiology I spent 35 minutes [id number] with the patient on the day of discharge performing discharge exam, discussing hospital stay and discharge instructions w ith patient and caregivers, preparation of discharge records, prescriptions & referral forms and addressing any questions/concerns the patient had as documented above. - Vitals & Intake/Output Vital Signs: Vital Signs Temperature 97.5 F 01/01/25 04:00 Pulse Rate 60 01/01/25 04:00 Respiratory Rate 16 01/01/25 04:00 Blood Pressure 146/78 01/01/25 04:00 O2 Sat by Pulse Oximetry 96 01/01/25 04:00 Intake & Output: Intake & Output 12/29/24 12/30/24 12/31/24 01/01/25 11:59 11:59 11:59 11:59 Intake Total 600 Balance 600 Weight 142.6 kg 138 kg - Lab Result Diagrams: 01/01/25 05:06 01/01/25 05:06 Lab Results-Last 24 Hrs: Lab Results-Last 24 Hours 12/31/24 12/31/24 12/31/24 Range/Units 09:05 09:05 09:05 WBC 6.6 (4.23-9.07) x10^3/uL RBC 4.99 (4.63-6.08) x10^6/uL Hgb 14.7 (13.7-17.5) g/dL Hct 43.7 (40.1-51.0) % MCV 87.6 (79.0-92.2) fL MCH 29.5 (25.7-32.2) pg MCHC 33.6 (32.3-36.5) g/dL RDW 13.2 (11.6-14.4) % Plt Count 224 (163-337) x10^3/uL MPV 9.6 (9.4-12.4) fL Gran % 64.0 (34.0-67.9) % Immature Gran % (Auto) 0.5 H (0.001-0.429) % Nucleat RBC Rel Count 0.0 (0.00-0.2) % Eos # (Auto) 0.15 (0.04-0.54) x10^3/uL Immature Gran # (Auto) 0.03 (0.001-0.031) x10^3u/L Absolute Lymphs (auto) 1.51 (1.32-3.57) x10^3/uL Absolute Monos (auto) 0.66 (0.30-0.82) x10^3/uL Absolute Nucleated RBC 0.00 (0.00-0.012) x10^3u/L Lymphocytes % 22.7 (21.8-53.1) % Monocytes % 9.9 (5.3-12.2) % Eosinophils % 2.3 (0.8-7.0) % Basophils % 0.6 (0.2-1.2) % Absolute Granulocytes 4.25 (1.78-5.38) x10^3/uL Basophils # 0.04 (0.01-0.08) x10^3/uL D-Dimer < 0.19 (0.0-0.50) mg/L Sodium 140 (135-145) mmol/L Potassium 3.7 (3.5-5.1) mmol/L Chloride 102 (98-107) mmol/L Carbon Dioxide 27 (22-30) mmol/L Anion Gap 14.7 (5-15) MEQ/L BUN 21 H (9-20) mg/dL Creatinine 0.93 (0.66-1.25) mg/dL Estimated GFR 96.4 ML/MIN Glucose 106 (74-106) mg/dL Calcium 9.4 (8.4-10.2) mg/dL Total Bilirubin 0.60 (0.2-1.3) mg/dL AST 40 (17-59) U/L ALT 49 (0-50) U/L Alkaline Phosphatase 54 (38-126) U/L Troponin I < 0.012 (0.000-0.033) ng/mL NT-Pro-B Natriuret Pep < 20.0 (<300) pg/mL Serum Total Protein 7.4 (6.3-8.2) g/dL Albumin 4.5 (3.5-5.0) g/dL Triglycerides (30-150) mg/dL Cholesterol (50-200) mg/dL LDL Cholesterol (30-100) mg/dL HDL Cholesterol (40-60) mg/dL Heart Disease Risk Ratio TSH 3rd Generation (0.470-4.680) mIU/L Urine Color (Yellow) Urine Appearance (Clear) Urine pH (4.6-8.0) Ur Specific [place] (1.005-1.030) Urine Protein (Negative) Urine Glucose (UA) (Negative) mg/dL Urine Ketones (Negative) Urine Blood (Negative) Urine Nitrite (Negative) Urine Bilirubin (Negative) Urine Urobilinogen (0.2) mg/dL Ur Leukocyte Esterase (Negative) U Hyaline Cast (Auto) (0-2) /LPF Urine Microscopic RBC (0-5) /HPF Urine Microscopic WBC (0-5) /HPF Ur Epithelial Cells (None Seen) /HPF Urine Bacteria (None Seen) /HPF Urine Culture Reflexed (NO) 12/31/24 12/31/24 12/31/24 Range/Units 09:05 11:30 17:55 WBC (4.23-9.07) x10^3/uL RBC (4.63-6.08) x10^6/uL Hgb (13.7-17.5) g/dL Hct (40.1-51.0) % MCV (79.0-92.2) fL MCH (25.7-32.2) pg MCHC (32.3-36.5) g/dL RDW (11.6-14.4) % Plt Count (163-337) x10^3/uL MPV (9.4-12.4) fL Gran % (34.0-67.9) % Immature Gran % (Auto) (0.001-0.429) % Nucleat RBC Rel Count (0.00-0.2) % Eos # (Auto) (0.04-0.54) x10^3/uL Immature Gran # (Auto) (0.001-0.031) x10^3u/L Absolute Lymphs (auto) (1.32-3.57) x10^3/uL Absolute Monos (auto) (0.30-0.82) x10^3/uL Absolute Nucleated RBC (0.00-0.012) x10^3u/L Lymphocytes % (21.8-53.1) % Monocytes % (5.3-12.2) % Eosinophils % (0.8-7.0) % Basophils % (0.2-1.2) % Absolute Granulocytes (1.78-5.38) x10^3/uL Basophils # (0.01-0.08) x10^3/uL D-Dimer (0.0-0.50) mg/L Sodium (135-145) mmol/L Potassium (3.5-5.1) mmol/L Chloride (98-107) mmol/L Carbon Dioxide (22-30) mmol/L Anion Gap (5-15) MEQ/L BUN (9-20) mg/dL Creatinine (0.66-1.25) mg/dL Estimated GFR ML/MIN Glucose (74-106) mg/dL Calcium (8.4-10.2) mg/dL Total Bilirubin (0.2-1.3) mg/dL AST (17-59) U/L ALT (0-50) U/L Alkaline Phosphatase (38-126) U/L Troponin I < 0.012 < 0.012 (0.000-0.033) ng/mL NT-Pro-B Natriuret Pep (<300) pg/mL Serum Total Protein (6.3-8.2) g/dL Albumin (3.5-5.0) g/dL Triglycerides (30-150) mg/dL Cholesterol (50-200) mg/dL LDL Cholesterol (30-100) mg/dL HDL Cholesterol (40-60) mg/dL Heart Disease Risk Ratio TSH 3rd Generation 1.973 (0.470-4.680) mIU/L Urine Color (Yellow) Urine Appearance (Clear) Urine pH (4.6-8.0) Ur Specific [place] (1.005-1.030) Urine Protein (Negative) Urine Glucose (UA) (Negative) mg/dL Urine Ketones (Negative) Urine Blood (Negative) Urine Nitrite (Negative) Urine Bilirubin (Negative) Urine Urobilinogen (0.2) mg/dL Ur Leukocyte Esterase (Negative) U Hyaline Cast (Auto) (0-2) /LPF Urine Microscopic RBC (0-5) /HPF Urine Microscopic WBC (0-5) /HPF Ur Epithelial Cells (None Seen) /HPF Urine Bacteria (None Seen) /HPF Urine Culture Reflexed (NO) 12/31/24 01/01/25 01/01/25 Range/Units 18:40 05:06 05:06 WBC 8.0 (4.23-9.07) x10^3/uL RBC 5.03 (4.63-6.08) x10^6/uL Hgb 14.5 (13.7-17.5) g/dL Hct 44.1 (40.1-51.0) % MCV 87.7 (79.0-92.2) fL MCH 28.8 (25.7-32.2) pg MCHC 32.9 (32.3-36.5) g/dL RDW 13.3 (11.6-14.4) % Plt Count 225 (163-337) x10^3/uL MPV 10.5 (9.4-12.4) fL Gran % 56.4 (34.0-67.9) % Immature Gran % (Auto) 0.5 H (0.001-0.429) % Nucleat RBC Rel Count 0.0 (0.00-0.2) % Eos # (Auto) 0.19 (0.04-0.54) x10^3/uL Immature Gran # (Auto) 0.04 H (0.001-0.031) x10^3u/L Absolute Lymphs (auto) 2.35 (1.32-3.57) x10^3/uL Absolute Monos (auto) 0.83 H (0.30-0.82) x10^3/uL Absolute Nucleated RBC 0.00 (0.00-0.012) x10^3u/L Lymphocytes % 29.5 (21.8-53.1) % Monocytes % 10.4 (5.3-12.2) % Eosinophils % 2.4 (0.8-7.0) % Basophils % 0.8 (0.2-1.2) % Absolute Granulocytes 4.49 (1.78-5.38) x10^3/uL Basophils # 0.06 (0.01-0.08) x10^3/uL D-Dimer (0.0-0.50) mg/L Sodium 140 (135-145) mmol/L Potassium 3.5 (3.5-5.1) mmol/L Chloride 103 (98-107) mmol/L Carbon Dioxide 27 (22-30) mmol/L Anion Gap 13.4 (5-15) MEQ/L BUN 15 (9-20) mg/dL Creatinine 0.83 (0.66-1.25) mg/dL Estimated GFR 102.7 ML/MIN Glucose 98 (74-106) mg/dL Calcium 9.2 (8.4-10.2) mg/dL Total Bilirubin 0.80 (0.2-1.3) mg/dL AST 34 (17-59) U/L ALT 43 (0-50) U/L Alkaline Phosphatase 52 (38-126) U/L Troponin I (0.000-0.033) ng/mL NT-Pro-B Natriuret Pep (<300) pg/mL Serum Total Protein 7.1 (6.3-8.2) g/dL Albumin 4.3 (3.5-5.0) g/dL Triglycerides 81 (30-150) mg/dL Cholesterol 166 (50-200) mg/dL LDL Cholesterol 75 (30-100) mg/dL HDL Cholesterol 59 (40-60) mg/dL Heart Disease Risk Ratio 3.0 TSH 3rd Generation (0.470-4.680) mIU/L Urine Color Yellow (Yellow) Urine Appearance Clear (Clear) Urine pH 7.5 (4.6-8.0) Ur Specific [place] 1.010 (1.005-1.030) Urine Protein Negative (Negative) Urine Glucose (UA) Negative (Negative) mg/dL Urine Ketones Negative (Negative) Urine Blood Negative (Negative) Urine Nitrite Negative (Negative) Urine Bilirubin Negative (Negative) Urine Urobilinogen 0.2 (0.2) mg/dL Ur Leukocyte Esterase Negative (Negative) U Hyaline Cast (Auto) NONE SEEN (0-2) /LPF Urine Microscopic RBC 0-2 (0-5) /HPF Urine Microscopic WBC 0-2 (0-5) /HPF Ur Epithelial Cells None Seen (None Seen) /HPF Urine Bacteria None Seen (None Seen) /HPF Urine Culture Reflexed NO (NO) - Radiology Exams Ordered Rad Exams-Entire Visit: Radiology Procedures Category Date Time Status ABDOMEN AND PELVIS W/0 CONTRAS [CT] Routine Exams 12/31/24 13:05 Completed CAROTID BILATERAL [US] Urgent Exams 12/31/24 13:05 Completed CHEST 1 VIEW (PORTABLE) Stat Exams 12/31/24 10:17 Completed ECHO W/2D AND DOPPLER [US] Routine Exams 12/31/24 13:02 Taken HEAD WITHOUT CONTRAST [CT] Stat Exams 12/31/24 15:00 Completed - Procedures and Test Procedures and Tests throughout Hospitalization: Therapy Orders & Screens 12/31/24 13:01 EKG REPEAT IN AM Comment: Diagnosis: Chest pain, ACS 12/31/24 16:30 Respiratory Therapy Assessment DAILY Comment: Diagnosis: CHEST PAIN, ACS, NEAR SYNCOPE Discharge Exam General Appearance: no apparent distress Neurologic Exam: alert, oriented x 3, cooperative Eye Exam: PERRL Ears, Nose, Throat Exam: normal ENT inspection Neck Exam: normal inspection Respiratory Exam: normal breath sounds, lungs clear Cardiovascular Exam: regular rate/rhythm, normal heart sounds Gastrointestinal/Abdomen Exam: soft, normal bowel sounds Male Genitalia Exam: deferred Rectal Exam: deferred Back Exam: normal inspection Extremity Exam: normal inspection Skin Exam: normal color Final Diagnosis/Problem List - Final Discharge Diagnosis/Problem (1) Chest pain Current Visit: Yes Status: Resolved Code(s): R07.9 - CHEST PAIN, UNSPECIFIED (2) HTN (hypertension) Current Visit: Yes Status: Chronic Code(s): I10 - ESSENTIAL (PRIMARY) HYPERTENSION (3) HLD (hyperlipidemia) Current Visit: Yes Status: Chronic Code(s): E78.5 - HYPERLIPIDEMIA, UNSPECIFIED (4) GERD (gastroesophageal reflux disease) Current Visit: Yes Status: Chronic Code(s): K21.9 - GASTRO-ESOPHAGEAL REFLUX DISEASE WITHOUT ESOPHAGITIS (5) Pre-diabetes Current Visit: Yes Status: Chronic Code(s): R73.03 - PREDIABETES (6) Near syncope Current Visit: Yes Status: Acute - Discharge Discharge Date: 01/01/25 Disposition: Home, Self-Care Condition: Stable Prescriptions: New PANTOPRAZOLE 40 mg Tablet [Protonix 40MG Tablet] 40 mg PO QAM 30 Days #30 tab Continue flaxseed oiL [Flaxseed Oil] 1 tab PO DAILY Gabapentin [Neurontin] 300 mg PO DAILY PRN PRN PRN Reason: neuropathy Aspirin EC 81 mg [Ecotrin 81 mg] 81 mg PO HS Olmesartan Medoxomil 20 mg [Benicar 20 MG] 20 mg PO DAILY Hydrochlorothiazide 25 mg [hydroDIURIL 25 MG] 25 mg PO DAILY Amlodipine Besylate [Norvasc] 5 mg PO DAILY Atorvastatin Calcium [Lipitor] 20 mg PO QHS Ascorbic Acid/Elderberry Fruit [Elderberry-Vit C 50-100 mg Chw] 1 each PO DAILY Discontinued Tirzepatide [Mounjaro] 5 mg SQ WEEKLY Omeprazole Magnesium [Prilosec Otc] 20 mg PO DAILY PRN PRN Reason: GERD Follow up with: KAREN CORRAL [CONSULTING PHYSICIAN] - (NEW PATIENT ) DINORAH LOPEZ MD [Primary Care Provider] -
[2025-01-01] MEDS: Benicar 20 MG PO SCH (09:05)
[2025-01-01] MEDS: hydroDIURIL 25 MG PO SCH (09:05)
[2025-01-01] MEDS: ECOTRIN 81 MG PO SCH (09:05)
[2025-01-01] MEDS: NORVASC 5 MG PO SCH (09:05)
[2025-01-01 11:50] VITALS: BP 131/70; PULSE 64; RESP 20; TEMP 97.1; O2SAT 96
== END 2025-01-01 12:33 | disposition home or self-care (01) ==
LOC: ED 08:33 → MED SURG 12:16
PROVIDERS: ADMIT Internal Medicine; ATTEND Internal Medicine
DX: R07.9 Chest pain, unspecified (principal); I10 Essential (primary) hypertension; E78.5 Hyperlipidemia, unspecified; K21.9 Gastro-esophageal reflux disease without esophagitis; R73.03 Prediabetes; R55 Syncope and collapse; Z79.899 Other long term (current) drug therapy
CPT/HCPCS: 36415; 70450; 71045; 74176; 80053; 80061; 81001; 83721; 83880; 84443; 84484; 85025; 85379; 93005; 93041; 93268; 93306; 93880; 94760; 99285; J1650; Q3014; A9270-GY; G0378